=== PATIENT | male | born 1960 | race Caucasian/White ===

== ENCOUNTER 2023-05-10 15:26 | Emergency (ER) | payer MEDICAID ==
[~2023-05-10] VITALS: Ht 177.8 cm; Wt 113.6 kg
[2023-05-10 15:39] VITALS: BP 136/96; PULSE 110; RESP 18; TEMP 97.6; O2SAT 95
== END 2023-05-10 18:22 ==
LOC: ER 15:27
DX: Z00.00 Encounter for general adult medical examination without abnormal findings (principal); I10 Essential (primary) hypertension
CPT/HCPCS: 99283

== ENCOUNTER 2024-08-21 09:15 | Outpatient (CLI) | payer MEDICAID | END 2024-08-21 23:59 | disposition home or self-care (01) | LOC: RAD 09:15 | PROVIDERS: ATTEND Podiatrist Foot & Ankle Surgery | DX: M19.071 Primary osteoarthritis, right ankle and foot (principal); M25.471 Effusion, right ankle; M25.571 Pain in right ankle and joints of right foot | CPT/HCPCS: 73700 ==

== ENCOUNTER 2025-02-22 06:30 | Day surgery (SDC) | payer MEDICAID ==
[2025-02-16 14:55] LABS: MEAN PLATELET VOLUME 7.7 FL (7.4-10.4); PRE OP HEMATOCRIT 43.1 % (42.0-52.0); PRE OP HEMOGLOBIN 14.8 g/dL (14.0-17.9); PRE OP PLATELET COUNT 254 X10'3 (140-440); PRE OP WHITE BLOOD COUNT 5.9 10'3 (4.8-10.8); RED CELL DISTRIBUTION WIDTH 13.3 % (11.5-14.5)
[2025-02-16 15:05] LABS: CREATININE 1.04 MG/DL (0.60-1.10); PRE OP ALT 33 U/L (30-65); PRE OP ANION GAP 9 (8-16); PRE OP AST 23 U/L (10-37); PRE OP BILIRUB, TOTAL 0.4 MG/DL (0.0-1.0); PRE OP GLUCOSE 141 MG/DL (70-104); PRE OP POTASSIUM 4.2 MMOL/L (3.4-5.1); PRE OP SODIUM 140 MMOL/L (135-145); TOTAL CARBON DIOXIDE 24.6 MMOL/L (24-32); eGFR 72 ML/MIN
[2025-02-21] MEDS: DOCUMENT DATE & TIME OF BETA-BLOCKER PO ONE (05:30)
[~2025-02-22] VITALS: Ht 177.8 cm; Wt 113.4 kg
[2025-02-22 06:00] VITALS: BP 132/68; PULSE 66; RESP 15; RESP 16; TEMP 97.9; O2SAT 97
[~2025-02-22 06:30] MED LIST: ASPI-1265 PO; ATOR40TA72 PO; METO-395 PO; SPIR25TA5 PO; TAMS-55 PO
[2025-02-22] MEDS ORDERED: BUPIVAcaine/PF 2.5mg/ml (0.25%) 10ml vial ONE ×2 (06:54→07:00)
[2025-02-22] MEDS ORDERED: LIDOcaine 2% (20mg/ml) 5ml vial ONE ×2 (06:54→07:00)
[2025-02-22] MEDS ORDERED: fentaNYL/PF 50MCG/1 ML 2ML syringe ONE (07:52)
[2025-02-22] MEDS ORDERED: midazolam 1 mg/ML 2ml injection ONE (07:52)
[2025-02-22] MEDS ORDERED: propofol inj 20 ML IV ONE (08:02)
[2025-02-22] MEDS ORDERED: HYDROmorphone/PF 0.2 MG/ML SYRINGE IV PRN ×2 (08:20)
[2025-02-22] MEDS ORDERED: hydrALAZINE 20mg/ml inj. IV PRN (08:20)
[2025-02-22] MEDS ORDERED: morphine 4 MG/ML inj SYRINge IV PRN (08:20)
[2025-02-22] MEDS ORDERED: acetaminophen 1,000mg/100ml IV 100 ML IV PRN (08:20)
[2025-02-22] MEDS ORDERED: ondansetron/PF 4mg/2ml inj IV PRN (08:20)
[2025-02-22] MEDS ORDERED: ringers solution, lacted 1,000 ML IV SCH (08:20)
[2025-02-22] MEDS ORDERED: labetalol 20mg/4ml (5mg/ml) syringe IV PRN (08:20)
[2025-02-22] MEDS ORDERED: LIDOcaine 0.5% (5mg/ml) 50ml vial ONE (08:23)
[2025-02-22] MEDS: ringers solution, lacted 1,000 ML IV ONE (08:43)
[2025-02-22] MEDS: BUPIVAcaine/PF 2.5mg/ml (0.25%) 10ml vial IJ ONE (08:44)
[2025-02-22 08:52] VITALS: BP 131/90; PULSE 61; RESP 14; O2SAT 98
[2025-02-22 09:00] VITALS: BP 138/93; PULSE 60; RESP 12; O2SAT 95
[2025-02-22 09:10] VITALS: BP 151/92; PULSE 60; RESP 9; O2SAT 97
[2025-02-22 09:20] VITALS: BP 143/103; PULSE 61; RESP 12; O2SAT 98
--- NOTE | 2025-02-22 09:24 | OPERATIVE REPORT ---
Operative Report Providers to ~ Date of Procedure: Feb 22, 2025 Pre-Operative Diagnosis: Dupuytren's contracture right hand Post-Operative Diagnosis SAME as PRE-Op Procedure Performed Right palm and ring finger fasciectomy, additional fasciectomy right thumb, r epair of radial digital nerve right ring finger Surgeon: Teja Luna MD Clinical Case Manager None Anesthesiologist: Nicolas Mcpherson Type of Anesthesia: Regional Findings: Complications Iatrogenic laceration of radial digital nerve right ring finger Prosthetics\Implants used: None Estimated Blood Loss: None Specimen Removed: None Description of Procedure: The patient is a 65-year-old man with a fairly significant contracture involving the ring finger in thumb the right hand. Surgery is indicated to improve function. Risks and benefits were discussed with the patient. Some of the risks include but are not limited to infection, bleeding, nerve or vessel damage, stiffness, recurrence. He agreed to proceed. He was brought to the operating room where the block was given along with the antibiotics. The arm was prepped and draped in usual manner. Proper time-out procedure was observed. The 1st incision was made along the radial edge of the thumb where there was a fairly thickened contracture and limitation of extension. Flaps were elevated and that area and nerves were protected. The diseased fascia was identified and transected proximally and this then dissected distally out to the IP crease. Once that fascia was thoroughly excised completely the contracture was release. The incision was irrigated and closed with suture. Next the ring finger was addressed with the incision starting at the palm level and extending up to the base of the digit. Because of the contracture we are unable to make the incision into the finger initially so the dissection started in the palm where the diseased fascia which was quite thick can exuberant was transected proximally and then dissected distally out to the distal palm level. This released the MCP contracture and allowed access to the finger. The finger incision was then made and the zigzag manner a past the PIP crease. Nerves were identified and protected. On the ulnar side there was no involvement of the spiral cord so the nerve was protected on the radial side dissection was taken proximally but distally intermittent laceration of the digital nerve occurred. The fascia extended past the PIP crease. It was excised up to that level in the proximal distal ends of the nerve were identified. Once the fascia was excised the nerve repair was undertaken using seven 0 Prolene epineural suture. Because of the divergent path of the nerve it was stretched somewhat so approximation w as done without difficulty or need for grafting. Once this is done thorough irrigation was done followed by cauterization of any small bleeders. The skin was then closed with a Prolene suture. Marcaine was injected and a sterile dressing applied along with a splint. The tourniquet was released the hand perfused well. He was taken to the recovery room in stable condition and to lerated the procedure well. TEJA LUNA Jr., MD Feb 22, 2025 09:24
[2025-02-22 09:30] VITALS: BP 140/100; PULSE 65; RESP 14; O2SAT 99
== END 2025-02-22 09:32 | disposition home or self-care (01) ==
LOC: PAS 06:30
PROVIDERS: ATTEND Orthopaedic Surgery Hand Surgery
DX: M72.0 Palmar fascial fibromatosis [Dupuytren] (principal); I25.10 Atherosclerotic heart disease of native coronary artery without angina pectoris; I10 Essential (primary) hypertension; M19.90 Unspecified osteoarthritis, unspecified site; F17.210 Nicotine dependence, cigarettes, uncomplicated; E78.5 Hyperlipidemia, unspecified; M19.079 Primary osteoarthritis, unspecified ankle and foot; Z79.899 Other long term (current) drug therapy; Z98.890 Other specified postprocedural states; Z98.49 Cataract extraction status, unspecified eye
CPT/HCPCS: 26123; 26125; 36415; 64831; 80053; 82948; 85025; A6222; J2003; J2250; J2704; J3010; J3490; J7030; J7120; Z7506; Z7512; A4215; A4618; A6449; A7000

== ENCOUNTER 2025-07-12 05:29 | Inpatient (IN) | payer MEDICAID ==
--- NOTE | 2025-07-06 14:02 | ELECTROCARDIOGRAPH REPORT ---
[facility] Test Date: 2025-07-06 Test Time: 13:59:35 Pat Name: PAU CARPENTER Department: PRE/OP CARDIOLOGY Patient ID: [facility]-[id number] Room: Gender: M Art Educator: mark : 1960 Requested By: CHYNA ELLIOTT Order Number: [id number] Reading MD: Dr. JUAN Sinclair Measurements Intervals [place] Rate: 71 P: 0 OK: 148 QRS: 43 QRSD: 101 T: 46 QT: 386 QTc: 420 Interpretive Statements Atrial-paced rhythm Low voltage, extremity and precordial leads Electronically Signed On 07-06-2025 17:23:[address] JUAN Sinclair Please click the below link to view image of tracing.
[2025-07-06 14:06] LABS: LEUKOCYTE ESTERASE ,URINE NEGATIVE (Neg); NITRITES, URINE NEGATIVE (Neg); OCCULT BLOOD,URINE NEGATIVE (Neg); UA COLLECTION TYPE NON-SPECIFIED
[2025-07-06 14:11] LABS: MEAN PLATELET VOLUME 7.4 FL (7.4-10.4); PRE OP HEMATOCRIT 44.6 % (42.0-52.0); PRE OP HEMOGLOBIN 14.8 g/dL (14.0-17.9); PRE OP PLATELET COUNT 262 X10'3 (140-440); PRE OP WHITE BLOOD COUNT 5.8 10'3 (4.8-10.8); RED CELL DISTRIBUTION WIDTH 13.0 % (11.5-14.5)
[2025-07-06 14:18] LABS: CREATININE 0.80 MG/DL (0.60-1.10); PRE OP ALT 28 U/L (30-65); PRE OP ANION GAP 8 (8-16); PRE OP AST 20 U/L (10-37); PRE OP BILIRUB, TOTAL 0.5 MG/DL (0.0-1.0); PRE OP GLUCOSE 128 MG/DL (70-104); PRE OP POTASSIUM 3.6 MMOL/L (3.4-5.1); PRE OP SODIUM 138 MMOL/L (135-145); TOTAL CARBON DIOXIDE 25.7 MMOL/L (24-32); eGFR > 90 ML/MIN
[~2025-07-12] VITALS: Ht 177.8 cm; Wt 115.0 kg
[2025-07-12] VITALS (22 sets, daily range): BP systolic 118–148; BP diastolic 62–90; PULSE 59–63; RESP 11–16; TEMP 97.5–98.2; O2SAT 92–99
[~2025-07-12 05:29] MED LIST changes: +LOSA50TA64 PO; -METO-395 PO; -SPIR25TA5 PO
[2025-07-12] MEDS: VANCOMYCIN/H2O 1.5g/300mL PB 300 ML IV ONE (05:55)
[2025-07-12] MEDS: ringers solution, lacted 1,000 ML IV SCH (05:56)
[2025-07-12] MEDS ORDERED: BUPIVAcaine 2.5mg/ml inj 50ml vial (contains preservative) ONE (07:00)
[2025-07-12] MEDS ORDERED: cloNIDine hcl/PF 100mcg/ml inj ONE (07:29)
[2025-07-12] MEDS ORDERED: MIDAZolam 1 MG/ML 5ML VIAL ONE (07:30)
[2025-07-12] MEDS ORDERED: fentaNYL/PF 50MCG/1 ML 2ML syringe ONE (07:30)
[2025-07-12] MEDS ORDERED: BUPIVAcaine/PF 7.5mg/ml (0.75%) 10ml vial ONE (07:35)
[2025-07-12] MEDS ORDERED: ROPIVAcaine 0.5% (5mg/ml) 30ml vial ONE (07:36)
[2025-07-12] MEDS: BUPIVAcaine 0.25% w/Epi /PF 30ml vial IJ ONE (07:45)
[2025-07-12] MEDS ORDERED: LIDOcaine 1%/PF 5ML 10 MG/ML VIAL ONE (08:02)
[2025-07-12] MEDS ORDERED: propofol inj 20 ML IV ONE (08:02)
[2025-07-12] MEDS ORDERED: enalaprilat 1.25mg/ml 2ml vial IV PRN (08:50)
[2025-07-12] MEDS ORDERED: HYDROmorphone/PF 0.2 MG/ML SYRINGE IV PRN ×2 (08:50)
[2025-07-12] MEDS ORDERED: ROPIVAcaine 0.2% (10 MG/5 ML) BOLUS INJECTION POPLITEAL PRN (08:50)
[2025-07-12] MEDS ORDERED: ringers solution, lacted 1,000 ML IV SCH (08:50)
[2025-07-12] MEDS ORDERED: ondansetron/PF 4mg/2ml inj IV PRN ×2 (08:50→10:25)
[2025-07-12] MEDS ORDERED: fentaNYL/PF 50MCG/1 ML 2ML syringe IV PRN ×2 (08:50)
[2025-07-12] MEDS ORDERED: morphine 4 MG/ML inj SYRINge IV PRN (08:50)
[2025-07-12] MEDS ORDERED: labetalol 20mg/4ml (5mg/ml) syringe IV PRN (08:50)
--- NOTE | 2025-07-12 08:52 | ANESTHESIA RECORDS ---
Nerve Block Providers to ~ Diagnosis: Nerve Block requested by: CHYNA ELLIOTT DPJoanne Neuraxial/Peripheral Nerve Block requested for Post-operative analgesia by Physician above DIAGNOSIS: Post-operative pain. (Body Area) Shoulder: [ ] Arm: [ ] Hand: [ ] Hip: [ ] Knee: [ ] Ankle: [____Right ] Foot: [ ] Leg: [ Right lower leg ] Abdomen: [ ] Other: [ ] Post-operative pain expected to be/is inadequately managed by oral or IV medicines. Regional anesthetic expected to facilitate rehabilitation and/or discharge from facility. Oth er:[ ] Procedure Performed: Femoral / Saphenous: Right Popliteal Lateral: Right Time out Done?: Yes Time of Time out: 07:32 Procedure Details: PROCEDURE DETAILS: Risks, benefits and alternatives explained Informed consent obtained, and patient wishes to proceed Conscious sedation with indicated monitors Patient positioned, pertinent anatomy defined, sterile technique used Needle used: [ ] 3 1/8 inch Stimuplex Ultra 22ga [x ] 4 inch Stimuplex Ultra 20ga [ ] 6 inch Stimuplex Ultra 20ga [ ] 6 inch, Quikbloc over the needle catheter set 20ga [x ] 4 inch Quikbloc over the needle catheter set 20ga [ ]Other: [ ] Loss of twitch @ [ 0.36 ]mA [x ] Single Injection & [x ] Catheter Ultrasound Guidance Used: [x ] Yes [ ] No Attempts:[ once ] Medicines injected: [x ]Clonidine Amt:[ 100 mcgs ] [x ]Dexamethasone Amt:[____4 mgs ] [x ]Ropivacaine Amt:[___0.5% 30 cc ] [ x ]Bupivacaine Amt:[__0.375% 16 cc ] [ ]Lidocaine Amt:[ ] [ ]Exparel 1.33%:[ ] [ ]Epinephrine Amt[ ] [ ]Other: [ ] Intermittent aspiration during local anesthetic administration No symptoms of intraneural or intravenous injection Patient tolerated procedure well Comments Right Popliteal fossa Block Continuous nerve block catheter Insertion Pt in Lt lateral position with Right Leg flexed at 90 Degrees. Lateral approach. Ultrasound probe placed back of thigh 2 inches above the knee joint. Done under sterile conditions. Easy visualization of the Sciatic nerve. 1% xylocaine local anesthetic. Easy visualization of Spreading of local anesthetic anterior and posterior to the Sciatic nerve. Catheter tip left posterior to sciatic nerve in perineural location at the bifurcation of the nerve and catheter well secured. Meaningful conversation t throughout. No Pain or discomfort during injection. Rt Adductor Canal blk Procedure done before surgery under General anesthesia. Pt supine with Rt leg rotated to Rt slightly. Easy visualization of Adductor Canal with ultra sound anterolateral to Femoral artery at the junction of upper and middle third of thigh. Able to see the tip of the needle and injected local anesthetic with the ultrasound. No Pain or discomfort during injection. JAZMIN MAZARIEGOS MD Jul 12, 2025 08:52
[2025-07-12] MEDS ORDERED: bacitracin 15gm ointment TP ONE (10:10)
[2025-07-12] MEDS ORDERED: ondansetron/PF 4mg/2ml inj ONE (10:20)
[2025-07-12] MEDS ORDERED: PCA WASTE DOCUMENTATION 1 MG ML MC SCH (10:25)
[2025-07-12] MEDS ORDERED: magnesium hydroxide 30ml (MOM) UD suspension PO PRN (10:25)
[2025-07-12] MEDS: potassium cl 20mEq in 1/2 NS 1,000 ML IV SCH (10:25)
[2025-07-12] MEDS ORDERED: bisacodyl 10mg suppository rectal RC PRN (10:25)
[2025-07-12] MEDS ORDERED: HYDROmorphone inj. 0.5 MG/0.5 ML DISP.SYRIN IV PRN (10:25)
[2025-07-12] MEDS ORDERED: HYDROcodone/acetaminophen 10/325mg tab PO PRN ×2 (10:25)
[2025-07-12] MEDS: ROPIVAcaine 0.2%/PF PUMP/bolus 545 ML POPLITEAL SCH (11:14)
--- NOTE | 2025-07-13 01:56 | OPERATIVE REPORT ---
DATE OF SURGERY: 07/12/2025 DICTATING PHYSICIAN: CHYNA PORTILLO DPM PREOPERATIVE DIAGNOSES: Right ankle pain, right ankle arthritis, right ankle equinus. POSTOPERATIVE DIAGNOSES: Right ankle pain, right ankle arthritis, right ankle equinus. PROCEDURES: * Total ankle arthroplasty with implant, right ankle. * Gastrocnemius recession, right ankle. SURGEON: Chyna Portillo DPM. SAFETY BELT INSTALLER: Barrington White DPM fellow. Assistance was needed to decrease tourniquet time, help with efficiency and retraction throughout the entirety of the procedure. ANESTHESIA: General anesthesia. HEMOSTASIS: Thigh tourniquet at 300 mmHg. FINDINGS: None. COMPLICATIONS: None. SPECIMENS: None. ESTIMATED BLOOD LOSS: Less than 15-20 mL. HARDWARE USED: InforcePro INBONE size 3 tibia, size 3 talus, size 8 polyethylene component. INDICATIONS: The patient presented to the office with the above-listed complaints which have been unresponsive to conservative treatment options. Thus, surgical options have been offered along with all potential risks, complications, and surgical outcomes being fully explained to the patient's level of understanding. No guarantees were given. Clinical and radiographic data correlated with the above diagnosis. DESCRIPTION OF PROCEDURE: The patient was brought to the operating room and placed on the operating table in the supine position. The patient was induced under general anesthesia. The patient received a popliteal and saphenous On-Q block. The foot and ankle were prepped and draped in the usual aseptic fashion. A previously applied thigh tourniquet was inflated to 300 mmHg after timeout was called and preoperative antibiotics were given and dosed appropriately. TOTAL ANKLE ARTHROPLASTY WITH IMPLANT AND GASTROCNEMIUS RECESSION We then brought our attention to the anterior aspect of the patient's ankle where a standard linear incision approximately 10-12 cm in length was then made. Using a #15 blade, we carefully dissected down to the level of the subcutaneous tissue with care being taken to identify and retract all vital neurovascular structures. After this, we carefully dissected down to the level of the deep fascia where the extensor retinaculum was then opened up. The area in between the TA and the EHL tendon was identified and dissected upon and then we moved and mobilized the neurovascular bundle out of the way and protected it throughout the entirety of the procedure. After this, we then measured and used the account representative in the room and the bakery chef's guidelines in order to drill and ream and place our implant cut block. It was noted that the size 3 was going to be the most appropriate. The patient had a tibial shaft fracture that had healed in a valgus position. If we were to line up the implant perpendicular to the joint line, this patient would have been in valgus, so therefore, it was decided to find a happy medium point of the mechanical and anatomic axis of the patient's tibia, which we did. We then reamed and placed this stem, which was an INBONE size 3 with size 14 top, 14 mid, 16 base, and a size 3 tibial tray. We then impacted this into an appropriate position. After this, a size 3 talus was going to be the most appropriate, which we impacted into an appropriate position on the talus. After this, we then placed a size 8 polyethylene component and then we balanced the ankle. It was noted that the patient had a tight posterior heel cord with decreased ankle joint dorsiflexion with the knee extended, but all the other planes were well balanced, so therefore, we placed a size 8 polyethylene component and took final fluoroscopic imaging. Fluoroscopic imaging was heavily used throughout this procedure in order to identify the appropriate position of his ankle, which we were very happy with. Ankle joint motion was excellent. We did perform a gutter cleanout of the medial and lateral gutters appropriately with a rongeur until there were excellent open gutters. After this, we then performed a gastrocnemius recession where a separate incision was then made over the medial aspect of the gastroc where 3 fingerbreadths distal to the gastroc, we then made a separate incision. We carefully dissected down to the level of the crural fascia, which was opened up to the operative field. The aponeurosis was identified and the foot was held dorsiflexed and then we transected the aponeurosis of the gastrocnemius recession. It was noted that the patient's ankle joint had a much better amount of dorsiflexion, which we were happy with. After this, we then took final fluoroscopic imaging and then closed all our incisions in a layered fashion. The extensor retinaculum was closed with 0 Vicryl and then all the subcutaneous tissue incisions were then closed with 3-0 Vicryl and then 3-0 nylon in a simple interrupted and horizontal mattress technique. The incisions were then dressed with triple antibiotic ointment, followed by Adaptic, 4 x 4's, and Webril and the patient was placed in a well-padded posterior splint with the foot held in a neutral position. The tourniquet was deflated. The patient was taken out of general anesthesia and placed in the PACU with vital signs stable and vascular status intact to the operative foot. The patient will be admitted to the hospital floor for further medical management. The patient tolerated the anesthesia well and the procedure well. The patient recovered well, and he had excellent vascular reestablishment to his digits. The patient was instructed to be nonweightbearing to the ankle. The patient was instructed to follow up with me in approximately 1-2 weeks after surgery. The entire case was performed in a teaching fashion. I was available pre and postoperatively to answer questions of the patient and his family. CHYNA PORTILLO DPM TID: [id number] RECEIPT: [id number] SUMA
[2025-07-13 02:40] VITALS: BP 122/62; PULSE 66; RESP 14; TEMP 98; O2SAT 96
[2025-07-13 06:00] VITALS: BP 116/63; PULSE 61; RESP 15; TEMP 97.3; O2SAT 96
[2025-07-13 06:08] LABS: MEAN PLATELET VOLUME 7.8 FL (7.4-10.4); RED CELL DISTRIBUTION WIDTH 13.4 % (11.5-14.5)
[2025-07-13 06:13] LABS: TOTAL CARBON DIOXIDE 23.6 MMOL/L (24-32)
[2025-07-13 08:00] VITALS: RESP 15; O2SAT 97
[2025-07-13 08:07] VITALS: BP 113/62; PULSE 63; RESP 15; O2SAT 96
[2025-07-13 10:00] VITALS: BP 140/63; PULSE 69; RESP 18; TEMP 97.7; O2SAT 97
--- NOTE | 2025-07-13 20:18 | PROGRESS NOTE ---
Ortho Clinic Progress Note History of Present Illness Allergies: Coded Allergies: cephalexin (Verified Allergy, Unknown, HIVES, 02/18/25) Social History Alcohol Use: Occasionally Drug Use: None Pain Pain Present: No Non-Verbal Pain Scale Used: None Verbalized Pain Intensity: 0 Location Location Modifier: Right Pain Location: Knee Subjective This patient was seen now postop day 1 total ankle replacement. Doing otherwise well with respect to pain and denies nausea, vomiting, fever, chills, chest pain, shortness of breath. Objective Vital Signs Date Time Temp Pulse Resp B/P (MAP) Pulse Ox O2 Delivery O2 Flow Rate FiO2 07/13/25 10:00 97.7 69 18 140/63 (88) 97 Room Air 07/12/25 12:44 0.0 Alert and Oreinted x4, Appropriate, Vital signs are stable, Dressing clean and dry, Calves: non-tender bilat Lab Results: 07/13/25 0519 07/13/25 0519 Problem\Assessment\Plan Assessment\Plan: Doing Well, Anticipate disch to home Plan: No further surgical plans this admission. Anticipate discharge to home today. Please leave splint c/d/i to the operative extremity until follow up in 1-2 weeks time. Please remain NWB to the operative extremity. Plan discussed with Dr. Portillo. MARILIN BLAND DPM Jul 13, 2025 20:18
--- NOTE | 2025-07-13 20:24 | DISCHARGE SUMMARY ---
Discharge Summary Ortho CC ~ Discharge Summary Discharge Date: Jul 13, 2025 *Problems/Diagnosis: (1) Ankle arthritis Status: Chronic (2) General medical exam Status: Acute Admission Diagnosis: s/p total joint replacement Discharge Diagnosis\Comment: None Operations\Procedures Total ankle replacement, gastrocnemius recession Consultants: None Complications: none Condition on DC: Stable Discharge Summary: This patient was admitted postoperatively for pain control and observation following total ankle replacement. His pain was monitored on the first postoperative day and was well controlled. He worked well with PT and DVT PPx was began on postoperative day 1 consisting of ASA 81. Total Time Spent on D/C: Up to 30 Minutes Medications Home Meds: Home Medications Active Reported Losartan Potassium 50 Mg Tablet 1 Tab PO DAILY Flomax* (Tamsulosin HCl) 0.4 Mg Cap.sr.24h 1 Cap PO DAILY Atorvastatin Calcium 40 Mg Tablet 1 Tab PO DAILY Aspirin 81 Mg Tab.chew 1 Tab PO DAILY MARILIN BLAND DPM Jul 13, 2025 20:24
== END 2025-07-13 16:10 | disposition home health service (06) | DRG 313 ==
LOC: PAS IN 05:29 → ORTHO 4S 12:36
PROVIDERS: ADMIT Podiatrist Foot & Ankle Surgery; ATTEND Podiatrist Foot & Ankle Surgery
PROC: 0L8N0ZZ Division of Right Lower Leg Tendon, Open Approach (ICD-10-PCS; 2025-07-12)
PROC: 0JH80VZ Insertion of Infusion Pump into Abdomen Subcutaneous Tissue and Fascia, Open Approach (ICD-10-PCS; 2025-07-12)
PROC: 3E0T3BZ Introduction of Anesthetic Agent into Peripheral Nerves and Plexi, Percutaneous Approach (ICD-10-PCS; 2025-07-12)
PROC: 3E0T33Z Introduction of Anti-inflammatory into Peripheral Nerves and Plexi, Percutaneous Approach (ICD-10-PCS; 2025-07-12)
PROC: 0SRF0JZ Replacement of Right Ankle Joint with Synthetic Substitute, Open Approach (ICD-10-PCS; principal; 2025-07-12 07:22)
DX: M19.071 Primary osteoarthritis, right ankle and foot (principal); Z88.1 Allergy status to other antibiotic agents
CPT/HCPCS: 36415; 73600; 76000; 80051; 80053; 81003; 82948; 85025; 93005; 97161; 97530; A4615; A4618; A6223; A6253; A6449; A7000; C1713; C1776; G0378; J0665; J0735; J2250; J2405; J2704; J2795; J3010; J3375; J3480; J3490; J7120